=== PATIENT | male | born 1975 | race Caucasian/White ===

== ENCOUNTER 2016-08-14 19:39 | Emergency (ER) | payer OTHER, MEDICARE ==
[~2016-08-14] VITALS: Ht 172.7 cm; Wt 81.6 kg
[2016-08-14 19:47] VITALS: BP 145/92
--- NOTE | 2016-08-14 20:11 | ED INFLUENZA/URI COMPLAINT ---
History of Present Illness General Chief Complaint: General Adult Stated Complaint: "SINUS/LT RING FINGER INFECTION" Source: patient, old records Exam Limitations: no limitations Vital Signs & Intake/Output Vital Signs & Intake/Output Vital Signs Date Time Temp Pulse Resp B/P Pulse O2 O2 Flow FiO2 Ox Delivery Rate 08/14 1946 98.4 125 20 145/92 97 Room Air Allergies Coded Allergies: codeine (HALLUCINATION 08/14/16) Reconcile Medications Amoxicillin/Potassium Clav (Augmentin 875-125 Tablet) 875 MG-125 MG TABLET 1 TAB PO BID SINUSITIS Triage Note: PRESENTS TO THE ED COMPLAINING OF SINUS PRESSURE, RUNNY NOSE X 2 WEEKS. DENIED FEVER, NON PRODUCTIVE COUGH. HE IS ALSO REQUESTING EVALUATION OF LEFT RING FINGER AREA WHERE HE THINKS THERE MAY BE A FOREIGN OBJECT. Triage Nurses Notes Reviewed? yes Onset: Abrupt Duration: week(s): (2), constant Timing: recent history Severity: mild Severity Numbers: 4 No Modifying Factors: none Associated Symptoms: nasal congestion, nasal drainage HPI: 41-year-old male presents to emergency room today for evaluation complaining of a two-week history of rhinorrhea, congestion and sore throat. He denies cough fever or chills. He has not taken any [id number] medication for his symptoms. He denies any difficulty breathing chest pain abdominal pain nausea vomiting or diarrhea. He has not sought care for the symptoms until today. There are no modifying factors or associated symptoms otherwise. 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 He denies any pain difficulty with range of motion of finger redness warmth or discharge and states that since he was here he wanted to have it checked. He is right-hand dominant. There are no modifying factors or associated symptoms with this finger. And he states that he does not feel anything in the finger however wanted to be sure (PHONG KYE,REJI) Past History Travel History Traveled to [place] past 21 day No Medical History Any Pertinent Medical History? see below for history EENT: PAROTID CANCER Surgical History Surgical History: none Psychosocial History What is your primary language [place]ian Tobacco Use: Current Daily Use Daily Tobacco Use Amount/Type: => 5 Cigarettes daily Family History Hx Contributory? No (REJI WATTERS) Review of Systems Review of Systems Constitutional: Reports: see HPI. All Other Systems: Reviewed and Negative Comments Review of systems: See HPI, All other systems negative. Constitutional, no chills no fever, no malaise HEENT: No visual changes no sore throat no congestion Cardiovascular: No chest pain , no palpitation , Skin, no jaundice no rashes, no change in skin Respiratory: No dyspnea no cough no sputum GI: No nausea no vomiting, no diarrhea, : No dysuria Muscle skeletal: No joint pain, no back pain, no neck pain, Neurologic: No numbness, no headache Psych: No stress Heme/endocrine: No bruising no bleeding Immunology: No lymphadenopathy (REJI WATTERS) Physical Exam Physical Exam General Appearance: well developed/nourished, alert, awake Ears, Nose, Throat: moist mucous membrane, hearing grossly normal, nasal congestion Comments: Well-developed well-nourished patient in no apparent distress. Head/Face: Atraumatic, no maxillary/frontal sinus tenderness, no facial swelling Eyes: PERRL, EOMI, no conjunctival injection. No nystagmus Ear:LEFT External auditory canal and Tympanic membrane clear, no erythema, no FB. Nose: atraumatic.Normal inspection Throat: Moist mucous membranes.Pharynx normal. No pharyngeal erythema/exudate seen. No stridor/drooling or assymetry. No swelling or edema. Neck: Supple, no lymphadenopathy, FROM Back: FROM, Nontender Cardiovascular: Regular rate and rhythms no murmurs rubs or gallops, Respiratory: Chest nontender.There were no bony deformities, no asymmetry. No respiratory distress. Patient speaking in full complete sentences. Breath sounds clear to auscultation bilaterally: NO W/R/R Extremities: full range of motion there is a superficial scab that is healing noted to the palmar aspect of left fourth finger PIP joint, there is no visualized or palpated foreign body there is no surrounding erythema induration or fluctuance him a full range of motion both active and passive nontender Neuro: Alert and oriented x3 Skin: Warm & dry;No appreciable rash on exposed skin Psych: Mood affect normal, normal memory normal judgment. Core Measures Severe Sepsis Present: No Septic Shock Present: No (REJI WATTERS) Progress Differential Diagnosis: influenza, otitis, pharyngitis, sinusitis Plan of Care: Patient clinically appears well and discussed with him the possibility of foreign body not seen on examination still exist there no overlying signs of infection the patient denies pain imaging was deferred. Discussed with him that the wound since it is healing and do not believe incision is needed however if the patient develops any concerns or signs of infection to return immediately prescription for Augmentin was called in. Advise close follow-up with his primary care physician he feels comfortable with this plan as well as questions cleared for discharge Initial ED EKG: none (REJI WATTERS) Departure Departure Time of Disposition: 2019 Disposition: HOME OR SELF CARE Condition: Stable Clinical Impression Primary Impression: Sinusitis Referrals: PATIENT HAS NO PRIMARY CARE DR (PCP/Family) Additional Instructions: Augmentin as directed. Use [id number] Mucinex Tylenol Motrin as needed for congestion and pain. Follow-up with your primary care physician and return with any concerns This prescription was sent to your pharmacy Departure Forms: Customer Survey General Discharge Information Prescriptions: Current Visit Scripts Amoxicillin/Potassium Clav (Augmentin 875-125 Tablet) 1 TAB PO BID #14 TAB (REJI WATTERS) PA/BUDGET ASSISTANT Co-Sign Statement Statement: ED Attending supervision documentation- [] I saw and evaluated the patient. I have also reviewed all the pertinent lab results and diagnostic results. I agree with the findings and the plan of care as documented in the PA's/BUDGET ASSISTANT's documentation. [x] I have reviewed the ED Record and agree with the PA's/BUDGET ASSISTANT's documentation. [] Additions or exceptions (if any) to the PAs/BUDGET ASSISTANT's note and plan are summarized below: [] (FREDO ORTIZ,NGHIA Anthony)
[2016-08-14] MEDS ORDERED: AUGMENTIN 875-1 EACH PO (20:21)
== END 2016-08-14 20:25 ==
LOC: ERH 19:39
DX: J32.9 Chronic sinusitis, unspecified (principal); Z72.0 Tobacco use